=== PATIENT | female | born 1930 | race Caucasian/White ===

== ENCOUNTER → 2016-11-29 | Outpatient (CLI) | payer OTHER ==
[~2016-11-29] MED LIST: AMLODIPINE; ASPIRIN325 PO; BACTRIM DS TAB1 EACH PO; CALTRATE 600 +1 EACH PO; DARVOCET-N 1001 EACH PO; DOXYCYCLINE 10100 M1 PO; FISH OIL + D31 EACH PO; HYDROCODON-ACE1 EAC7 PO; LIPITOR; LIPITOR10 MG PO; MECLIZINE 25 MG25 M1 PO; MULTI-VITAMIN1 EAC5 PO; NAPROSYN500 MG PO; NORCO 5-325 TA1 EACH PO; NORVASC10 MG PO; PROMETHAZINE V480 M1 PO; VICODIN 5-5001 EACH PO
== END ==
LOC: RAD 07:52
DX: Z12.31 Encounter for screening mammogram for malignant neoplasm of breast (principal)

== ENCOUNTER 2017-05-02 10:22 | Observation (INO) | payer OTHER ==
[~2017-05-02] VITALS: Ht 152.4 cm; Wt 45.8 kg
--- NOTE | ~2017-05-02 | EKG ---
[place] [address] [facility] [place] [address] ELECTROCARDIOGRAM REPORT Name: PATEL COYLE Room #: 452-P ADM IN M.R.#: [id number] Admission: 05/02/17 Attend Phys: Vik Abernathy MD Discharge: Date of : 32 Report #: [id number] THIS REPORT FOR: //name// [facility] ED Test Date: 2017-05-02 Test Time: 11:26:37 Pat Name: PATEL COYLE Department: Room: [facility] Gender: F [employer] Operator: Mahad DE LEON : 1930 Requested By: Yoshi Vargas Order Number: [id number] MD: Vinny Montilla Measurements Intervals [place] Rate: 64 P: 40 [place]: 243 QRS: -6 QRSD: 99 T: 147 QT: 453 QTc: 468 Interpretive Statements Sinus rhythm Prolonged [place] interval Probable left atrial enlargement LVH with secondary repolarization abnormality Probable inferior infarct, old Compared to ECG 12/03/2015 09:06:55 Sinus bradycardia no longer present Electronically Signed On 05-03-2017 8:21:46 CDT by Vinny Montilla [email or web address] <ELECTRONICALLY SIGNED> By: Vinny Montilla MD, [facility] 05/03/17 0821 1126 1126 Vinny Montilla MD, [facility] /EPI
--- NOTE | ~2017-05-02 | 2DMMODE ---
[facility] [address] [place] [address] 2 D/M-MODE ECHOCARDIOGRAM Name: PATEL COYLE Room #: 452-P [facility] IN .R.#: [id number] Admission: 05/02/17 Attend Phys: Candida East Discharge: Date of : 31 Date of Service: 05/03/17 1119 Report #: [id number] THIS REPORT FOR: //name// APPROVED REPORT Study performed: 05/03/2017 10:35:16 EXAM: Comprehensive 2D, Doppler, and color-flow Echocardiogram Patient Location: Bedside Room #: [facility] Status: routine BSA: 1.40 HR: 64 bpm BP: 155/78 mmHg Rhythm: NSR Other Information Study Quality: Good Indications Syncope, elevated troponin. HX: HTN, HLP 2D Dimensions RVDd: 31.84 mm LVEF(%): 52.57 (>50%) IVSd: 13.70 (7-11mm) LVOT Diam: 21.80 (18-24mm) LVDd: 36.62 mm PWd: 12.78 (7-11mm) LVDs: 26.95 (25-40mm) Aortic Root: 39.49 mm Patel's LVEF: 52.57 % Volumes Left Atrial Volume (Systole) Single Plane 4CH: 34.49 mL Single Plane 2CH: 34.84 mL LA ESV Index: 28.00 mL/m2 Aortic Valve AoV Peak Shine.: 1.61 m/s AO Peak Gr.: 10.42 mmHg LVOT Max P.30 mmHg LVOT Max V: 1.04 m/s STACI Vmax: 2.40 cm2 Mitral Valve E/A Ratio: 0.5 MV Decel. Time: 301.52 ms [facility] [place] [address] 2 D/M-MODE ECHOCARDIOGRAM Name: PATEL COYLE Room #: 452-[facility] IN ..#: [id number] Admission: 05/02/17 Attend Phys: Candida East Discharge: Date of : 31 Date of Service: 05/03/17 1119 Report #: [id number] E Max Shine.: 0.44 m/s MV A Shine.: 0.89 m/s MV PHT: 87.44 ms IVRT: 124.57 ms Pulmonary Valve PV Peak Shine.: 0.97 m/s PV Peak Gr.: 3.78 mmHg Tricuspid Valve TR Peak Shine.: 2.53 m/s RAP Estimate: 5.00 mmHg TR Peak Gr.: 25.68 mmHg PA Pressure: 30.00 mmHg Left Ventricle The left ventricle is normal size. Regional wall motion is grossly normal. Moderate concentric left ventricular hypertrophy. Left ventricular systolic function is normal. LVEF is 55%. Mild diastolic dysfunction is present (impaired relaxation pattern). Right Ventricle The right ventricle is normal size. The right ventricular systolic function is normal. Atria The left atrium size is normal. No evidence of PFO/ASD with color flow doppler. The right atrium size is normal. Aortic Valve The Aortic valve is mildly sclerotic. Trace to mild aortic regurgitation. There is no aortic valvular stenosis. Mitral Valve Mitral valve leaflets are normal. Trace mitral regurgitation. Tricuspid Valve The tricuspid valve is normal in structure. There is trace to mild tricuspid regurgitation. The right atrial pressure is estimated at 5 mmHg. There is borderline mild pulmonary hypertension. Estimated PAP is 30mmHg. Pulmonic Valve The pulmonary valve is normal in structure. Trace pulmonic regurgitation. Great Vessels [facility] [address] [place] [address] 2 D/M-MODE ECHOCARDIOGRAM Name: PATEL COYLE [facility] IN ..#: [id number] Admission: 05/02/17 Attend Phys: Candida East Discharge: Date of : 31 Date of Service: 05/03/17 1119 Report #: [id number] Aortic root is mildly dilated at 3.9cm. The ascending aorta is normal in size. IVC is normal in size and collapses >50% with inspiration. Pericardium There is no pericardial effusion. <Conclusion> Left ventricular systolic function is normal. Moderate concentric left ventricular hypertrophy. Regional wall motion is grossly normal. LVEF 55%. Mild diastolic dysfunction is present (impaired relaxation pattern). The Aortic valve is mildly sclerotic. Trace to mild aortic regurgitation, no stenosis. Mitral valve leaflets are normal. Trace mitral regurgitation. Pulmonary artery pressure of 30mmHg There is no pericardial effusion. <ELECTRONICALLY SIGNED> By: Vinny Montilla MD, [facility] 05/03/17 1119 1119 1119 Vinny Montilla MD, FAC /INF
--- NOTE | ~2017-05-02 | HC ---
[facility] [place] [address] CONSULTATION Name: PATEL COYLE Room #: 452-P [facility] IN ..#: [id number] Admission: 05/02/17 Attend Phys: Vik Abernathy MD Discharge: 05/03/17 Date of : 31 Report #: [id number] THIS REPORT FOR: //name// CC: Filiberto Abernathy DATE OF SERVICE: 05/03/2017 HISTORY OF PRESENT ILLNESS: The patient is an 86-year-old female admitted with questionable syncope. She was noted to have hit her head on a car door approximately 2 days ago. She did not want to come right in at that time. She has some problems fussiness and not thinking right and she was thus brought in to [facility]. 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 There also was noted to be a chronic remote left frontal lobe infarct. Neurology is indicated the patient has a headache and dizziness after hitting her head on car door. She notes problems with her speech and trying to do her check book and with writing. We are seeing her in rehabilitation medicine consultation. PAST MEDICAL HISTORY: Includes hysterectomy, splenectomy, deviated septum, parathyroid surgery, hypertension, elevated cholesterol, non-ST elevation [place]. HABITS: No history of tobacco or alcohol abuse. MEDICATIONS: Please see the full medication listing. ALLERGIES: PENICILLIN. SOCIAL HISTORY: Lives in a house with her , one level. Her used a walker to get around. There is a daughter that he is currently staying with. They have 3 children in the area and another daughter in [place]. The patient was premorbidly ambulatory without gait aids. REVIEW OF SYSTEMS: She did not offer any current complaints of chest pain, shortness of breath or abdominal discomfort. Denied any focal extremity weakness, but does have concerns with her cognitive issues and her recent fall. PHYSICAL EXAMINATION: GENERAL: An 86-year-old white female in no obvious distress. The patient is alert. VITAL SIGNS: Last recorded temperature 97.8, pulse 71, respirations 18, blood pressure 136/69. HEENT: Appeared to be benign. EOMs appeared full. Facies were symmetric. NEUROLOGIC: She was able to follow basic 1 step commands without difficulty. Appears somewhat unsure of herself with further cognitive processing, however. EXTREMITIES: She has functional range of motion to both upper extremities. [facility] [address] [place] [address] CONSULTATION Name: PATEL COYLE Room #: 452-P [facility] IN ..#: [id number] Admission: 05/02/17 Attend Phys: Vik Abernathy MD Discharge: 05/03/17 Date of : 31 Report #: [id number] Chronic arthritic changes of her hands. Strength of the upper body is grade 4 to 4-/5. DTRs are trace to 1. Lower extremities, no focal calf swelling, functional range of motion with strength grade 4 to 4-/5. ASSESSMENT: An 86-year-old white female with the following problem list: 1. 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 2. Apparent head injury, hitting her head on a car door with some dizziness and headache. 3. Functional mobility, ADL and cognitive communication deficits to be further evaluated. 4. History of hypertension. 5. Elevated cholesterol. 6. History of non-ST elevation myocardial infarction. PLAN: Therapy evaluations are underway as well as the current neurologic workup. We will be glad to follow regarding her rehab therapy needs as she further medically stabilizes. By: 1130 0103 Valentin Delaney MD /
[2017-05-02 10:39] VITALS: BP 157/84
[2017-05-02 11:28] LABS: URINE BILIRUBIN NEGATIVE (Negative); URINE BLOOD TRACE (Negative); URINE COLOR YELLOW; URINE GLUCOSE-RANDOM* NEGATIVE (Negative); URINE KETONES NEGATIVE (Negative); URINE LEUKOCYTES-REFLEX NEGATIVE (Negative); URINE PROTEIN (DIPSTICK) NEGATIVE (Negative); URINE SPECIFIC GRAVITY <= 1.005 (1.003-1.035); URINE UROBILINOGEN 0.2 E.U./dl (0.2-1.0)
[2017-05-02 11:30] LABS: HEMATOCRIT 44.5 % (37.0-47.0); HEMOGLOBIN 15.2 gm/dL (12.0-15.0); MCH 30.9 pg (26.0-34.0); MCHC 34.3 g/dL (28.0-37.0); MCV 90.3 fL (80.0-100.0); RBC 4.93 mil/uL (4.20-5.00); RDW 13.6 % (10.5-14.5); WBC 11.7 thou/uL (4.0-11.0)
[2017-05-02 11:34] LABS: CALCIUM 9.9 mg/dL (8.5-10.1); CREATININE 1.1 mg/dL (0.6-1.0); POTASSIUM 3.7 mmol/L (3.5-5.1)
[2017-05-02 11:42] LABS: TROPONIN-I 0.59 ng/mL (<0.04-0.07)
[2017-05-02] MEDS ORDERED: ALEVE220 MG PO (11:53)
[2017-05-02] MEDS ORDERED: MAGNESIUM250 M1 PO (11:53)
[2017-05-02 16:04] VITALS: BP 166/68
[2017-05-02 16:59] LABS: URINE BILIRUBIN NEGATIVE (Negative); URINE BLOOD TRACE (Negative); URINE COLOR YELLOW; URINE GLUCOSE-RANDOM* NEGATIVE (Negative); URINE KETONES TRACE (Negative); URINE NITRITE NEGATIVE (Negative); URINE PROTEIN (DIPSTICK) NEGATIVE (Negative); URINE UROBILINOGEN 0.2 E.U./dl (0.2-1.0)
[2017-05-02 19:50] VITALS: BP 144/73
[2017-05-03] VITALS (9 sets, daily range): BP systolic 107–165; BP diastolic 65–79
[2017-05-03 04:56] LABS: HEMATOCRIT 42.2 % (37.0-47.0); HEMOGLOBIN 14.2 gm/dL (12.0-15.0); MCH 30.6 pg (26.0-34.0); MCHC 33.6 g/dL (28.0-37.0); RBC 4.63 mil/uL (4.20-5.00); RDW 13.6 % (10.5-14.5); WBC 8.8 thou/uL (4.0-11.0)
[2017-05-03 05:09] LABS: ALBUMIN 3.4 g/dL (3.4-5.0); ALKALINE PHOSPHATASE 51 U/L (46-116); ANION GAP 7 mmol/L (7-16); BUN 17 mg/dL (7-18); CHLORIDE 102 mmol/L (98-107); CHOLESTEROL 131 mg/dL (<200); CO2 28 mmol/L (21-32); CREATININE 0.9 mg/dL (0.6-1.0); GLUCOSE 83 mg/dL (74-106); HDL CHOLESTEROL 69 mg/dL (>40); LDL CHOLESTEROL 52 mg/dL (<100); POTASSIUM 3.5 mmol/L (3.5-5.1); SGOT 25 U/L (15-37); SGPT 20 U/L (30-65); SODIUM 137 mmol/L (136-145); TC:HDL 1.9 Ratio (Not establshd); TOTAL BILIRUBIN 0.7 mg/dL (<0.1-1.0); TOTAL PROTEIN 6.7 g/dL (6.4-8.2); TRIGLYCERIDE 52 mg/dL (<150); VLDL 10 mg/dL (<40)
[2017-05-03 05:25] LABS: SERUM ASSESSMENT Clear
[2017-05-03] MEDS ORDERED: ASPIR 8181 MG PO (17:59)
== END 2017-05-03 18:36 | disposition home health service (06) ==
LOC: ER 10:22 → 4W 14:46 → ENTRNSPT 05-03 18:17 → 4W 05-03 18:36
PROVIDERS: Emergency Medicine; Family Medicine
DX: I63.9 Cerebral infarction, unspecified (principal); I10 Essential (primary) hypertension; R79.89 Other specified abnormal findings of blood chemistry; E78.00 Pure hypercholesterolemia, unspecified

== ENCOUNTER → 2017-12-21 | Outpatient (CLI) | payer OTHER ==
[~2017-12-21] MED LIST changes: +ALEVE220 MG PO; +ASPIR 8181 MG PO; +MAGNESIUM250 M1 PO
== END ==
LOC: RAD 00:59
DX: Z12.31 Encounter for screening mammogram for malignant neoplasm of breast (principal)

== ENCOUNTER 2018-06-24 17:41 | Inpatient (IN) | payer OTHER ==
[~2018-06-24] VITALS: Ht 152.4 cm; Wt 50.0 kg
--- NOTE | ~2018-06-24 | EKG ---
[address] [address] ELECTROCARDIOGRAM REPORT Name: PATEL COYLE Room #: 352-P ADM IN M.R.#: [id number] Admission: 06/24/18 Attend Phys: Abrahan Muhammad MD Discharge: Date of : 31 Report #: [id number] THIS REPORT FOR: //name// [facility] ED Test Date: 2018-06-24 Test Time: 19:23:53 Pat Name: PATEL COYLE Department: Room: [facility] Gender: F Clay Modeler: SURENDRA : 1930 Requested By: Dara Ceron Order Number: [id number] MD: Vinny Montilla Measurements Intervals [place] Rate: 85 P: 16 MS: 212 QRS: -28 QRSD: 105 T: 145 QT: 417 QTc: 496 Interpretive Statements Sinus rhythm Borderline prolonged [place] interval Probable left atrial enlargement LVH with secondary repolarization abnormality Probable inferior infarct, age indeterminate Baseline wander in lead(s) V1 Compared to ECG 05/02/2017 11:26:37 No significant changes Electronically Signed On 06-26-2018 9:06:12 CDT by Vinny Montilla [email or web address] <ELECTRONICALLY SIGNED> By: Vinny Montilla MD, [facility] 06/26/18 0906 22 22 Vinny Montilla MD, [facility] /EPI
--- NOTE | ~2018-06-24 | 2DMMODE ---
[facility] [address] [place] [address] 2 D/M-MODE ECHOCARDIOGRAM Name: PATEL COYLE Room #: 352-P [facility] IN ..#: [id number] Admission: 06/24/18 Attend Phys: Abrahan Muhammad MD Discharge: Date of : 31 Date of Service: 06/26/18 1018 Report #: [id number] THIS REPORT FOR: //name// APPROVED REPORT Study performed: 06/26/2018 09:18:55 EXAM: Comprehensive 2D, Doppler, and color-flow Echocardiogram Patient Location: Echo lab Room #: [facility] Status: routine BSA: 1.43 HR: 76 bpm BP: 181/89 mmHg Rhythm: NSR Other Information Study Quality: Adequate Indications CVA. Hx: HTN, HLP Echo Enhancing Agent Indication: Rule out Shunt Agent(s) / Amount(s) Used: Agitated Saline 6 cc 2D Dimensions RVDd: 36.87 mm IVSd: 13.00 (7-11mm) LVOT Diam: 20.69 (18-24mm) LVDd: 40.00 mm PWd: 13.00 (7-11mm) Ascending Ao: 36.88 (22-36mm) LVDs: 27.52 (25-40mm) Aortic Root: 40.39 mm Volumes Left Atrial Volume (Systole) Single Plane 4CH: 24.86 mL Single Plane 2CH: 33.74 mL LA ESV Index: 22.00 mL/m2 Aortic Valve AoV Peak Shine.: 1.53 m/s AO Peak Gr.: 9.31 mmHg LVOT Max P.42 mmHg LVOT Max V: 0.92 m/s STACI Vmax: 2.04 cm2 [facility] [place] [place] [address] 2 D/M-MODE ECHOCARDIOGRAM Name: PATEL COYLE Room #: 352-P [facility] IN [facility]#: [id number] Admission: 06/24/18 Attend Phys: Abrahan Muhammad MD Discharge: Date of : 31 Date of Service: 06/26/18 1018 Report #: [id number] Mitral Valve E/A Ratio: 0.5 MV Decel. Time: 364.01 ms MV E Max Shine.: 0.42 m/s MV A Shine.: 0.85 m/s MV PHT: 105.56 ms IVRT: 110.73 ms Pulmonary Valve PV Peak Shine.: 1.05 m/s PV Peak Gr.: 4.42 mmHg Tricuspid Valve TR Peak Shine.: 2.50 m/s RAP Estimate: 5.00 mmHg TR Peak Gr.: 25.03 mmHg PA Pressure: 30.00 mmHg Left Ventricle The left ventricle is normal size. There is normal LV segmental wall motion. Mild-moderate concentric left ventricular hypertrophy. The overall left ventricular systolic function appears normal. LVEF is 55%. Mild diastolic dysfunction is present (impaired relaxation pattern). Right Ventricle The right ventricle is normal size. The right ventricular systolic function is normal. Atria The left atrium size is normal. No shunting noted with contrast bubble injection. The right atrium size is normal. Aortic Valve The aortic valve is mildly sclerotic. Mild aortic regurgitation. There is no aortic valvular stenosis. Mitral Valve The mitral valve is normal in structure. Trace to mild mitral regurgitation. Tricuspid Valve The tricuspid valve is normal in structure. Trace to mild tricuspid regurgitation. Estimated PAP is 30-35mmHg. Pulmonic Valve The pulmonary valve is normal in structure. Trace pulmonic regurgitation. [facility] [address] [place] [address] 2 D/M-MODE ECHOCARDIOGRAM Name: PATEL COYLE Room #: 352-P [facility] IN ..#: [id number] Admission: 06/24/18 Attend Phys: Abrahan Muhammad MD Discharge: Date of : 31 Date of Service: 06/26/18 1018 Report #: [id number] Great Vessels Aortic root is mildly dilated. The ascending aorta is normal in size. IVC is normal in size and collapses >50% with inspiration. Pericardium There is no pericardial effusion. <Conclusion> The overall left ventricular systolic function appears normal. Mild-moderate concentric left ventricular hypertrophy. There is normal LV segmental wall motion. LVEF is 55%. Mild diastolic dysfunction No shunting noted with contrast bubble injection. The aortic valve is mildly sclerotic. Mild aortic regurgitation or stenosis The mitral valve is normal in structure. Trace to mild mitral regurgitation. Trace to mild tricuspid regurgitation. Estimated pulmonary artery pressure of 30-35mmHg. There is no pericardial effusion. <ELECTRONICALLY SIGNED> By: Vinny Montilla MD, [facility] 06/26/18 1018 1018 1018 Vinny Montilla MD, [facility] /INF
--- NOTE | ~2018-06-24 | HC ---
[facility] [place] [address] [place] [address] CONSULTATION Name: PATEL COYLE Room #: 352-P ADM IN M.R.#: [id number] Admission: 06/24/18 Attend Phys: Abrahan Muhammad MD Discharge: Date of : 31 Report #: [id number] THIS REPORT FOR: //name// CC: Filiberto Muhammad HISTORY OF PRESENT ILLNESS: The patient is an 87-year-old female. She is well known to me. I have followed her for a number of years for some mild valvular insufficiency, hypertension, hypercholesterolemia. Apparently, was in [place] yesterday, some shaky, jitteriness, not felt well, possibly some right hand involvement, refused to go to the paramedics and daughter subsequently brought her to the [place]. She was admitted, seen by Neurology, hospitalist. An MRI most recently reveals possibly a small area of a recent acute or subacute infarct on the left side, consistent with an area of perfusion abnormality on the CT. Avenue to be small vessel disease. The transthoracic echo looked to be normal. Bubble study was negative. She has been doing fairly well and still somehow living independently, still grieving the loss of her . She does have family members involved in her care. I saw her a couple of months ago in the office, she was on amlodipine, baby aspirin, atorvastatin 10, calcium, magnesium, multivitamin. PAST MEDICAL HISTORY: Positive for hypertension, hypercholesterolemia, some idiopathic thrombocytopenia, hysterectomy, septoplasty, splenectomy and DJD. FAMILY HISTORY: Father from an infarct early in his years, she stated. SOCIAL HISTORY: She is . She has children. Never tobacco or alcohol user. A cup of coffee a day. ALLERGIES: HYDROCODONE AND ACETAMINOPHEN, PENICILLIN. DIAGNOSTIC DATA: She has had multiple CAT scans and MRIs that show consistent with this limited infarct. CT scan showed old chronic left and right frontal, left frontal and right cerebellar infarct, but then the MRI was suggestive of a process going on as stated above. LABORATORY DATA: Sodium 142, BUN 15, creatinine 0.9, glucose 129. Lipids are favorable. Troponin 0.72. This is not diagnostic. She runs chronically elevated troponins, generally in the 2-3 range, so this has improved. H and H are 13 and 40. No white count. PHYSICAL EXAMINATION: GENERAL: She certainly has some memory, but she is pleasant. She does recognize me. VITAL SIGNS: Pulse is 80s in sinus rhythm, blood pressure 140/60. HEENT: Eyes reveal xanthelasmas, arcus senilis is noted. Pharynx is clear. NECK: Shows preserved upstrokes without JVD or bruits. [address] [address] CONSULTATION Name: PATEL COYLE Room #: 352-P [facility] IN M.R.#: [id number] Admission: 06/24/18 Attend Phys: Abrahan Muhammad MD Discharge: Date of : 31 Report #: [id number] LUNGS: Clear. CARDIAC: Regular rate and rhythm, S1, S2. Faint holosystolic murmur is noted. ABDOMEN: Soft. No HSM or abdominal bruit. EXTREMITIES: Reveal trace edema. Distal pulses were intact. NEUROLOGIC: Nonfocal. Seemed to have reasonable strength involving the right upper extremity, although did not follow commands entirely. SKIN: Warm and dry without xanthoma. There are some varicosities noted. No skin breakdown. MUSCULOSKELETAL: Generalized arthritic changes. ASSESSMENT: 1. Appears to be small vessel infarct to the left hemisphere with evidence of old prior events. Minimal residual. 2. Hypertension. 3. Hypercholesterolemia. 4. Some early dementia with memory deficit. 5. Degenerative joint disease. RECOMMENDATIONS AND PLAN: I agree with restarting the aspirin, would consider possibly an additional clopidogrel with the reduced dose aspirin. I do not certainly think that a MELIA would be necessary in this setting here, would definitely favor a 2-4 week outpatient monitor looking for atrial fibrillation and addition of Plavix perhaps as this did occur on a baby aspirin. She seems to have minimal to little residual here. The transthoracic echo was actually an excellent study with bubble negative. The only thing we could not evaluate really well would be the appendage, but I think the yield would be small in this elderly somewhat frail female. We will proceed and follow with you. Discuss with Neurology and primary in the a.m. about the addition of a second antiplatelet agent and we will place 2-week monitor prior to discharge. I suspect that will be relatively soon. Thank you for allowing me to assist in care of this patient. By: 2054 1225 Izaiah Gonzalez MD, FACC /nt
--- NOTE | ~2018-06-24 | EKG ---
[place] [address] [facility] [place] [address] ELECTROCARDIOGRAM REPORT Name: PATEL COYLE Room #: 352- ADM IN M.R.#: [id number] Admission: 06/24/18 Attend Phys: Abrahan Muhammad MD Discharge: Date of : 31 Report #: [id number] THIS REPORT FOR: //name// [facility] Test Date: 2018-06-27 Test Time: 07:48:56 Pat Name: PATEL COYLE Department: Room: [facility] Gender: F Builder Operator: ANTONIETA : 1930 Requested By: Izaiah Gonzalez Order Number: [id number] MD: Vinny Montilla Measurements Intervals [place] Rate: 70 P: 76 [place]: 226 QRS: 31 QRSD: 100 T: 203 QT: 447 QTc: 483 Interpretive Statements Sinus rhythm Prolonged [place] interval Probable left atrial enlargement LVH with secondary repolarization abnormality Baseline wander in lead(s) V6 Compared to ECG 06/24/2018 19:23:[address] segment abnormality is slightly more pronounced Electronically Signed On 06-27-2018 8:03:54 CDT by Vinny Montilla [email or web address] <ELECTRONICALLY SIGNED> By: Vinny Montilla MD, [facility] 06/27/18 0803 0748 0748 Vinny Montilla MD, [facility] /EPI
--- NOTE | ~2018-06-24 | HC ---
[facility] [place] [address] CONSULTATION Name: PATEL COYLE Room #: 352-P [facility] IN ..#: [id number] Admission: 06/24/18 Attend Phys: Abrahan Muhammad MD Discharge: Date of : 31 Report #: [id number] THIS REPORT FOR: //name// CC: Filiberto Muhammad DATE OF SERVICE: 06/26/2018 HISTORY OF PRESENT ILLNESS: The patient is an 87-year-old white female with 2 prior CVAs without significant residual. One was noted to be an occipital CVA, who was admitted with mental status changes, noted to have right hand numbness and decreased function. Something was "not quite right." Upon admission, she was noted to have a left parietal CVA on CT scan and this was confirmed by MRI. Neurology is involved and indicate that the patient would need to be evaluated regarding possible atrial fibrillation due to the multiple strokes in multiple vascular distribution with intracranial vasculature being clean. The patient has had a functional decline from her premorbid level and we are seeing her in rehabilitation medicine consultation. She was noted to have right-sided weakness with some confusion. PAST MEDICAL HISTORY: Includes prior right superior cerebellar ischemic infarct apparent head injury back in 2017, history of hypertension, elevated cholesterol, non-ST elevation ID. PAST SURGICAL HISTORY: Includes hysterectomy, splenectomy, deviated septum, parathyroid surgery. MEDICATIONS: Please see the full medication listing. This includes vitamins, herbals, and supplements. ALLERGIES: INCLUDE PENICILLIN. SOCIAL HISTORY: She lives in a house alone, 4 steps in, recent approximately 4 months ago. She does have supportive children and there is a daughter that is currently involved and there is a sister that spent the night last night. REVIEW OF SYSTEMS: No current complaints of chest pain, shortness of breath, abdominal discomfort. Notes some numbness of the right side, but feels it is improving. No focal extremity pain complaints. PHYSICAL EXAMINATION: She is a pleasant small statured, thin 87-year-old white female, in no obvious distress. VITAL SIGNS: Last recorded temperature 98.3, pulse 85, respirations 18, blood pressure 181/89. Alert was incorrect regarding year. She does follow basic 1 step commands, but she is unsure of herself and will refer to her daughter with [facility] [address] [place] [address] CONSULTATION Name: PATEL COYLE Room #: 352-P [facility] IN .R.#: [id number] Admission: 06/24/18 Attend Phys: Abrahan Muhammad MD Discharge: Date of : 31 Report #: [id number] further questioning. NEUROLOGIC: EOMs appeared to be full. I could not detect any obvious visual field deficit. EXTREMITIES: has some weakness on the right side, a grade 4-/5 upper and lower extremity. Left side is more of a grade 4/5. DTRs are 1. Tone appeared to be intact. Functionally, she has been seen by physical therapy and is at a min assist level with the walker, short distances. She is showing impaired right to left discrimination, possible right visual field deficits, inconsistent step length and when fatigued will list toward the wall or point of stability. She does have decreased balance and safety awareness and there is some right-sided neglect. ASSESSMENT: An 87-year-old white female with the following problems: 1. Left parietal cerebrovascular accident confirmed both CT and MRI. 2. Right-sided hemiparesis. 3. Right-sided neglect. 4. Decreased balance with fall risk. 5. Some decreased coordination. 6. Safety awareness. 7. Prior history of a cerebrovascular accident, right superior cerebellar. 8. Premorbid status was independent, living alone and without utilizing gait aids. 9. Hypertension. 10. Hyperlipidemia. 11. Prior history of non-ST elevation myocardial infarction. PLAN: Therapy evaluations are continuing. OT and speech therapy to be involved. Discussion with the patient's daughter who is very supportive. They would very much like for the patient to have a short acute in-hospital inpatient rehabilitation stay once her neurologic and medical workup is completed. The family appears very supportive and with the patient's deficits as delineated above, I think that this will be a good plan. The further therapies are to evaluate and we will be in contact with insurance regarding precertification. Discussion of the above was held with the patient's daughter. Thank you for asking us to assist in this patient's care. By: [id number] Valentin Delaney MD /nt
--- NOTE | ~2018-06-24 | HC ---
[facility] [place] [address] CONSULTATION Name: PATEL COYLE Room #: 352-P [facility] IN M.R.#: [id number] Admission: 06/24/18 Attend Phys: Rakesh Kathleen MD Discharge: Date of : 31 Report #: [id number] THIS REPORT FOR: //name// CC: Rakesh Pham DATE OF SERVICE: 06/24/2018 HISTORY OF PRESENT ILLNESS: This is an 87-year-old female patient who was evaluated by me for stroke. The history is from the Emergency Room physician, the patient's daughter and the patient's son. This patient was in the chair around 4:30. She did not notice anything wrong but other people noticed that she was not right. They wanted her to call ambulance, but she would not do it. They called the patient's daughter who went back to see her and she has to drive a lot to see her, but she was able to persuade this patient to come to the Emergency Room. With that history, it was presumed that the time of onset was 4:30 p.m., but it looks like that is the time the symptoms were noticed. The patient did not notice it, other people noticed it and it is possible the symptoms were going on longer than that. She was brought to Emergency Room and initial workup was done by Emergency Room physician. She did a CT scan of the head, CT angio and CT perfusion. It does not show any major occlusion of the vessels but that shows finding consistent with a large penumbra in the left cerebral hemisphere, which will correlate with the patient's symptoms of speech difficulty and right-sided weakness. I got the first call on this patient around 7:15 p.m. I talked to the Emergency Room doctor and as their notes indicated, recommended TPA if there is no contraindication. They discussed that with the patient and the family and they declined and refused TPA and the TPA was not given. I came and evaluated the patient and took the history and it looks like the symptoms onset may have been earlier than 4:30 p.m. She does have right-sided weakness and she is very confused. She has some residual weakness in the right side from the prior stroke but that is worse now. REVIEW OF SYSTEMS: Partly taken from the record and partly from the patient. She was in this hospital in April of 2017. She saw Dr. Martines that time. 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 She went home, even that time even after concerns of Dr. Martines. She does not have any history of heart failure. It looks like she has been seen by Dr. Gonzalez in the past. She was functional before. She had cardiac workup before. She also has a flexion tendon rupture in the past. At one time, she was admitted with dizziness. At one time, she was admitted with closed head injury. She does have a history of hypertension and hysterectomy. She had a history of splenectomy, but her platelets are normal now. She has already received aspirin at home. This was her relevant 14-point review of system. [address] [address] CONSULTATION Name: PATEL COYLE Room #: 352-P ADM IN ..#: [id number] Admission: 06/24/18 Attend Phys: Rakesh Kathleen MD Discharge: Date of : 31 Report #: [id number] PAST MEDICAL HISTORY: Positive for what looks like at least 2 strokes. FAMILY HISTORY: Negative for early age stroke. SOCIAL HISTORY: She has a pretty supportive family and I talked to the daughter and the son. PHYSICAL EXAMINATION: NEUROLOGICAL: Her examination was carried out multiple times. She is alert. She is responsive. She does not know what month it is and that is not normal for her. She can still say words. She knew what hospital she was in but when asked who the president is, she said she is [place]. Cranial nerve examination 2 through 12 was somewhat incomplete because I cannot do a very good visual field on her because she is not cooperative enough and there may be slight facial palsy. She is definitely weak in the right upper and right lower extremity. How much is old and how much is new, I don't know. She moves the left side well. HEART: She does have a murmur in the heart but she has no history of atrial fibrillation. SKIN: Does not have much edema, cyanosis or jaundice. CARDIORESPIRATORY: Cardiac examinations clinically appear unremarkable. No respiratory difficulty was noticed. VITAL SIGNS: Blood pressure is running about 165, systolic; respirations 17; pulse is 81 and temperature is 97.5. GENERAL: She is thinly built individual. HEENT: Her hearing and vision looks adequate. NECK: She has no thyroid mass. RADIOLOGICAL DATA: Her CT was reviewed and CT angiogram was reviewed with the patient and the family. IMPRESSION: 1. Left hemispheric cerebrovascular accident. 2. Multiple other cerebrovascular accident in different vascular distribution with no clot demonstrated in any of the major vessels. That is an indication to do extensive workup to look for any atrial fibrillation as is secondary stroke prophylaxis later on. RECOMMENDATIONS: 1. The patient and the family refused TPA as I understand. I will suggest keeping the blood pressure high. I talked to the Emergency Room physician and asked them to give a fluid bolus to hydrate her well and even keep her blood pressure a little bit more higher. We should not treat the patient's blood pressure. 2. Monitor the patient closely but I do not think much can be done because there is no much can be done at this stage because there is nothing to retrieve [facility] [address] [place] [address] CONSULTATION Name: PATEL COYLE Room #: 352-P ADM IN M.R.#: [id number] Admission: 06/24/18 Attend Phys: Rakesh Kathleen MD Discharge: Date of : 31 Report #: [id number] the clot. 3. The patient was very reluctant to come to the hospital. She wanted to go home. She is competent to make her decision but after talking to her for a while, she is agreeable to stay in the hospital. She is a very pleasant person, but she just does not like the hospitals. Similarly, family also persuaded the patient and she wants to go home as soon as possible. I am not sure that will be possible, but we will try to encourage her every day to stay in the hospital. 4. She will need PT, OT, rehab and DVT prophylaxis. 5. She already received aspirin. 6. Depending upon how she does from the stroke and whether she become worse or not, this patient needs extensive workup to look for atrial fibrillation because she has stroke in multiple distributions without any major vessel arterial thrombosis. That is an indication to look for any cardio embolization. If some atrial fibrillation is noticed during the monitoring of telemetry, then she does not need workup to look for atrial fibrillation. Otherwise, she will need a followup with her dental technician metal, Dr. Gonzalez for 30 days event monitor and even implantable monitor to look for atrial fibrillation. That is assuming that she comes out okay from this stroke. However, that is not guaranteed because the patient can deteriorate from the present condition. All of it was discussed with the family in detail and I spent considerable amount of time with them. I discussed the situation again with Emergency Room doctor and she will give her some fluid bolus and keep the blood pressure high. this addendum is being added at the time of signing the dictation being signed. Patient was seen multiple times and she continued to be stable. Patient was discussed with emergency room physician multiple times. More than the minutes of time was spent taking care of this patient today and majority of that time was spent counseling the patient and the family and coordinating her care <ELECTRONICALLY SIGNED> By: Robert Tucker MD 06/25/18 1523 0505 Robert Tucker MD /nt
--- NOTE | ~2018-06-24 | EKG ---
[address] [address] ELECTROCARDIOGRAM REPORT Name: PATEL COYLE Room #: 352- ADM IN M.R.#: [id number] Admission: 06/24/18 Attend Phys: Abrahan Muhammad MD Discharge: Date of : 31 Report #: [id number] THIS REPORT FOR: //name// [facility] Test Date: 2018-06-28 Test Time: 08:31:28 Pat Name: PATEL COYLE Department: Room: [facility] Gender: F Instructor Industrial Design: ANTONIETA : 1930 Requested By: Abrahan Muhammad Order Number: [id number] MD: Vinny Montilla Measurements Intervals [place]f Rate: 139 P: AL: QRS: -30 QRSD: 95 T: 109 QT: 328 QTc: 499 Interpretive Statements Atrial fibrillation LVH with secondary repolarization abnormality Borderline prolonged QT interval Compared to ECG 06/27/2018 07:48:56 Atrial fibrillation has replaced sinus rhythm Electronically Signed On 06-28-2018 8:53:16 CDT by Vinny Montilla [email or web address] <ELECTRONICALLY SIGNED> By: Vinny Montilla MD, [facility] 06/28/18 0853 0 0 Vinny Montilla MD, FAC /EPI
[2018-06-24 17:49] VITALS: BP 174/68
[2018-06-24 18:17] LABS: POC CA IONIZED 4.9 mg/dL (4.5-5.3); POC HEMOGLOBIN 15.6 g/dL (12.0-15.0); POC POTASSIUM 3.8 mmol/L (3.5-5.1)
[2018-06-24 18:20] LABS: ABSOLUTE NEUTROPHILS 3.7 thou/uL (1.4-8.2); BASOPHILS 0.8 % (0.0-2.0); EOSINOPHILS 1.6 % (0.0-3.0); HEMATOCRIT 44.7 % (37.0-47.0); LYMPHOCYTES 34.5 % (24.0-44.0); MCH 31.2 pg (26.0-34.0); MCHC 33.7 g/dL (28.0-37.0); MCV 92.8 fL (80.0-100.0); MONOCYTES 11.8 % (1.0-8.0); PLATELET COUNT 207 thou/uL (150-400); POLYS 51.3 % (36.0-66.0); RBC 4.81 mil/uL (4.20-5.00); RDW 13.2 % (10.5-14.5); WBC 7.3 thou/uL (4.0-11.0)
[2018-06-24 18:36] LABS: APTT 25.3 Seconds (24.5-32.8)
[2018-06-24 18:56] LABS: URINE BILIRUBIN NEGATIVE (Negative); URINE BLOOD NEGATIVE (Negative); URINE CLARITY CLEAR; URINE COLOR YELLOW; URINE GLUCOSE-RANDOM* NEGATIVE (Negative); URINE KETONES NEGATIVE (Negative); URINE LEUKOCYTES 1+ (Negative); URINE NITRITE NEGATIVE (Negative); URINE PROTEIN (DIPSTICK) NEGATIVE (Negative); URINE SPECIFIC GRAVITY <= 1.005 (1.005-1.035); URINE UROBILINOGEN 0.2 E.U./dl (0.2-1.0)
[2018-06-24 19:05] LABS: SQUAMOUS 4-10 Moderate /LPF (0-3)
[2018-06-24 19:06] LABS: BACTERIA None Seen /HPF (None Seen); CASTS None Seen /LPF (None Seen); CRYSTALS None Seen /LPF (None Seen); URINE RBC 0-2 Rare /HPF (0-2); URINE WBC 6-15 Few /HPF (0-5)
[2018-06-24 20:10] VITALS: BP 171/75
[2018-06-24 20:13] VITALS: BP 165/70
[2018-06-24 21:00] VITALS: BP 157/75
[2018-06-24 21:57] VITALS: BP 139/58
[2018-06-25] VITALS (8 sets, daily range): BP systolic 121–174; BP diastolic 59–80
[2018-06-25 05:10] LABS: HEMATOCRIT 42.1 % (37.0-47.0); HEMOGLOBIN 14.1 gm/dL (12.0-15.0); MCH 31.3 pg (26.0-34.0); MCHC 33.5 g/dL (28.0-37.0); MCV 93.4 fL (80.0-100.0); RBC 4.51 mil/uL (4.20-5.00); RDW 13.3 % (10.5-14.5); WBC 7.3 thou/uL (4.0-11.0)
[2018-06-25 05:20] LABS: ANION GAP 8 mmol/L (7-16); BUN 15 mg/dL (7-18); CALCIUM 8.8 mg/dL (8.5-10.1); CHLORIDE 106 mmol/L (98-107); CHOLESTEROL 140 mg/dL (<200); CO2 29 mmol/L (21-32); CREATININE 0.9 mg/dL (0.6-1.0); GLUCOSE 80 mg/dL (74-106); HDL CHOLESTEROL 75 mg/dL (>40); LDL CHOLESTEROL 55 mg/dL (<100); POTASSIUM 3.3 mmol/L (3.5-5.1); SODIUM 143 mmol/L (136-145); TC:HDL 1.9 Ratio (Not establshd); TRIGLYCERIDE 51 mg/dL (<150); VLDL 10 mg/dL (<40)
[2018-06-25 05:26] LABS: SERUM ASSESSMENT Clear
[2018-06-26] VITALS (10 sets, daily range): BP systolic 120–181; BP diastolic 52–89
[2018-06-26 04:16] LABS: HEMATOCRIT 40.7 % (37.0-47.0); HEMOGLOBIN 13.7 gm/dL (12.0-15.0); MCH 31.4 pg (26.0-34.0); MCHC 33.7 g/dL (28.0-37.0); MCV 93.2 fL (80.0-100.0); RBC 4.37 mil/uL (4.20-5.00); RDW 13.3 % (10.5-14.5)
[2018-06-26 04:30] LABS: CALCIUM 7.8 mg/dL (8.5-10.1); CREATININE 0.9 mg/dL (0.6-1.0); POTASSIUM 3.6 mmol/L (3.5-5.1)
[2018-06-26 23:09] LABS: GLYCOHEMOGLOBIN (HGB A1C) 5.7 % (4.8-5.6)
[2018-06-27] VITALS (7 sets, daily range): BP systolic 144–164; BP diastolic 57–81
[2018-06-28] VITALS (17 sets, daily range): BP systolic 113–171; BP diastolic 47–93
[2018-06-28 09:00] LABS: HEMATOCRIT 46.7 % (37.0-47.0); HEMOGLOBIN 15.8 gm/dL (12.0-15.0); MCH 31.3 pg (26.0-34.0); MCHC 33.9 g/dL (28.0-37.0); MCV 92.5 fL (80.0-100.0); RBC 5.05 mil/uL (4.20-5.00); RDW 13.2 % (10.5-14.5); WBC 9.2 thou/uL (4.0-11.0)
[2018-06-28 09:07] LABS: CREATININE 1.1 mg/dL (0.6-1.0); POTASSIUM 3.7 mmol/L (3.5-5.1)
[2018-06-28 09:09] LABS: CALCIUM 9.9 mg/dL (8.5-10.1)
[2018-06-28 09:21] LABS: ALBUMIN 3.6 g/dL (3.4-5.0); MAGNESIUM 2.3 mg/dL (1.8-2.4); TOTAL BILIRUBIN 0.6 mg/dL (<0.1-1.0); TOTAL PROTEIN 7.4 g/dL (6.4-8.2)
[2018-06-28 09:23] LABS: TROPONIN-I 0.88 ng/mL (<0.06)
[2018-06-29 05:40] VITALS: BP 158/78
[2018-06-29 07:20] VITALS: BP 147/76
[2018-06-29 08:00] VITALS: BP 147/76
[2018-06-29 11:24] VITALS: BP 132/61
[2018-06-29] MEDS ORDERED: ACETAMINOPHEN650 MG RECTAL (11:40)
[2018-06-29] MEDS ORDERED: ELIQUIS2.5 MG PO (11:40)
[2018-06-29] MEDS ORDERED: DILTIAZEM 24HR180 M1 PO (11:40)
[2018-06-29] MEDS ORDERED: COLACE100 MG PO (11:40)
[2018-06-29] MEDS ORDERED: FAMOTIDINE20 MG/2 M2 IV (11:40)
[2018-06-29 12:00] VITALS: BP 147/76
[2018-06-29 14:16] VITALS: BP 150/64
== END 2018-06-30 14:54 | DRG 64 ==
LOC: ER 17:41 → 3W 20:19 → EROBS 20:19 → 3W 21:58 → EROBS 23:17 → 3W 06-29 14:09 → EROBS 06-30 14:54
PROVIDERS: Hospitalist; Internal Medicine; Nurse Practitioner Family; Student in an Organized Health Care Education/Training Program
DX: I63.9 Cerebral infarction, unspecified (principal); G93.41 Metabolic encephalopathy; G81.94 Hemiplegia, unspecified affecting left nondominant side; G81.91 Hemiplegia, unspecified affecting right dominant side; N39.0 Urinary tract infection, site not specified; I10 Essential (primary) hypertension; E78.5 Hyperlipidemia, unspecified; E78.00 Pure hypercholesterolemia, unspecified; M19.90 Unspecified osteoarthritis, unspecified site; F03.90 Unspecified dementia, unspecified severity, without behavioral disturbance, psychotic disturbance, mood disturbance, and anxiety; E03.9 Hypothyroidism, unspecified; Z60.2 Problems related to living alone; M62.84 Sarcopenia; E87.6 Hypokalemia; K59.00 Constipation, unspecified; M81.0 Age-related osteoporosis without current pathological fracture; I69.911 Memory deficit following unspecified cerebrovascular disease; Z90.710 Acquired absence of both cervix and uterus; Z88.8 Allergy status to other drugs, medicaments and biological substances; Z87.828 Personal history of other (healed) physical injury and trauma; Z90.81 Acquired absence of spleen; Z88.0 Allergy status to penicillin; I25.2 Old myocardial infarction; Z88.6 Allergy status to analgesic agent; Z79.82 Long term (current) use of aspirin; Z79.899 Other long term (current) drug therapy; I48.91 Unspecified atrial fibrillation
CPT/HCPCS: 10879

== ENCOUNTER → 2018-11-01 | Outpatient (CLI) | payer OTHER ==
[~2018-11-01] MED LIST changes: +ACETAMINOPHEN650 MG RECTAL; +CALCIUM 600 +1 EAC1 PO; +COLACE100 MG PO; +DILTIAZEM 24HR180 M1 PO; +ELIQUIS2.5 MG PO; +FAMOTIDINE20 MG/2 M2 IV; +FELODIPINE 5 MG5 M1 PO; +FLONASE 0.05%50 MCG NASAL
== END ==
LOC: CAT 06:51 → RAD 06:51 → CAT 11:07
DX: N21.0 Calculus in bladder (principal); N28.1 Cyst of kidney, acquired; M11.261 Other chondrocalcinosis, right knee; I70.0 Atherosclerosis of aorta; R91.1 Solitary pulmonary nodule; M47.815 Spondylosis without myelopathy or radiculopathy, thoracolumbar region; M43.17 Spondylolisthesis, lumbosacral region; K42.9 Umbilical hernia without obstruction or gangrene; Z90.710 Acquired absence of both cervix and uterus

== ENCOUNTER → 2019-01-05 | Outpatient (CLI) | payer OTHER | LOC: RAD 08:10 | DX: Z12.31 Encounter for screening mammogram for malignant neoplasm of breast (principal) ==

== ENCOUNTER 2019-05-01 19:59 | Inpatient (IN) | payer OTHER ==
[~2019-05-01] VITALS: Ht 152.4 cm; Wt 53.1 kg
[~2019-05-01 19:59] MED LIST changes: +ASPIRIN81 M2 PO
[2019-05-01 20:03] VITALS: BP 159/83
[2019-05-01 21:15] LABS: URINE BILIRUBIN NEGATIVE (Negative); URINE BLOOD 3+ (Negative); URINE CLARITY CLEAR; URINE COLOR YELLOW; URINE GLUCOSE-RANDOM* NEGATIVE (Negative); URINE KETONES NEGATIVE (Negative); URINE LEUKOCYTES-REFLEX NEGATIVE (Negative); URINE NITRITE-REFLEX NEGATIVE (Negative); URINE PROTEIN (DIPSTICK) TRACE (Negative); URINE UROBILINOGEN 0.2 E.U./dl (0.2-1.0)
[2019-05-01 21:25] LABS: BACTERIA-REFLEX 1-9 Few /HPF (None Seen); CASTS None Seen /LPF (None Seen); CRYSTALS None Seen /LPF (None Seen); SQUAMOUS 0-3 Few /LPF (0-3); URINE WBC-REFLEX None Seen /HPF (0-5)
[2019-05-01 21:30] LABS: ABSOLUTE NEUTROPHILS 5.4 thou/uL (1.4-8.2); BASOPHILS 0.8 % (0.0-2.0); EOSINOPHILS 2.2 % (0.0-3.0); HEMATOCRIT 40.2 % (37.0-47.0); HEMOGLOBIN 13.4 gm/dL (12.0-15.0); LYMPHOCYTES 25.2 % (24.0-44.0); MCH 30.7 pg (26.0-34.0); MCHC 33.4 g/dL (28.0-37.0); PLATELET COUNT 258 thou/uL (150-400); POLYS 59.8 % (36.0-66.0); RBC 4.36 mil/uL (4.20-5.00); RDW 14.1 % (10.5-14.5); WBC 9.1 thou/uL (4.0-11.0)
[2019-05-01 21:40] LABS: CALCIUM 8.9 mg/dL (8.5-10.1); POTASSIUM 3.5 mmol/L (3.5-5.1)
[2019-05-01 21:53] LABS: TROPONIN-I 0.74 ng/mL (<0.06)
[2019-05-02] VITALS (175 sets, daily range): BP systolic 97–170; BP diastolic 56–91
[2019-05-02] MEDS ORDERED: NORVASC5 MG PO (01:04)
--- NOTE | 2019-05-02 08:37 | EKG ---
[place] [address] [employer] [place] [place] [address] ELECTROCARDIOGRAM REPORT Name: PATEL COYLE Room #: 250-P ADM IN M.R.#: [id number] Admission: 05/02/19 Attend Phys: Ricardo Herrera MD Discharge: Date of : 31 Report #: [id number] THIS REPORT FOR: //name// [facility] ED Test Date: 2019-05-01 Test Time: 20:08:38 Pat Name: PATEL COYLE Department: Room: 250 Gender: F Magnetic Resonance Imaging Director: PAULINE : 1930 Requested By: Nicolás Rodriguez Order Number: [id number] MD: Vinny Montilla Measurements Intervals [place] Rate: 78 P: HI: QRS: 73 QRSD: 100 T: QT: 392 QTc: 447 Interpretive Statements Atrial fibrillation LVH with secondary repolarization abnormality Poor R wave progression Compared to ECG 02/28/2019 16:11:02 criteria for inferior infarct no longer present Electronically Signed On 05-02-2019 8:36:50 CDT by Vinny Montilla [email or web address] <ELECTRONICALLY SIGNED> By: Vinny Montilla MD, [facility] 05/02/1935 07 07 iVnny Montilla MD, FACC /EPI
--- NOTE | 2019-05-02 14:59 | 2DMMODE ---
[facility] [address] [place] [address] 2 D/M-MODE ECHOCARDIOGRAM Name: COYLEPATEL Room #: 250-P [facility] IN ..#: [id number] Admission: 05/02/19 Attend Phys: Ricardo Herrera, Discharge: Date of : 31 Date of Service: 05/02/19 1459 Report #: [id number] THIS REPORT FOR: //name// APPROVED REPORT Study performed: 05/02/2019 14:17:47 EXAM: Comprehensive 2D, Doppler, and color-flow Echocardiogram Patient Location: ICU Room #: 250 Status: routine BSA: 1.44 HR: 82 bpm BP: 147/78 mmHg Rhythm: Atrial Fibrillation Other Information Study Quality: Good Indications Atrial Fibrillation Dyspnea Hx: CVA, afib, HTN, HLP. 2D Dimensions RVDd: 42.20 mm IVSd: 15.59 (7-11mm) LVOT Diam: 22.54 (18-24mm) LVDd: 38.63 mm PWd: 15.48 (7-11mm) Ascending Ao: 41.58 (22-36mm) LVDs: 30.65 (25-40mm) Aortic Root: 38.99 mm Volumes Left Atrial Volume (Systole) Single Plane 4CH: 62.18 mL Single Plane 2CH: 57.78 mL LA ESV Index: 45.00 mL/m2 Aortic Valve AoV Peak Shine.: 1.23 m/s AO Peak Gr.: 6.07 mmHg LVOT Max P.07 mmHg LVOT Max V: 0.72 m/s STACI Vmax: 2.33 cm2 Mitral Valve MV Decel. Time: 162.40 ms [facility] [address] [place] [address] 2 D/M-MODE ECHOCARDIOGRAM Name: PATEL COYLE Room #: 250-[facility] IN [facility]#: [id number] Admission: 05/02/19 Attend Phys: Ricardo Herrera, Discharge: Date of : 31 Date of Service: 05/02/19 1459 Report #: [id number] MV E Max Shine.: 0.95 m/s Pulmonary Valve PV Peak Shine.: 0.68 m/s PV Peak Gr.: 1.85 mmHg Tricuspid Valve TR Peak Shine.: 2.22 m/s RAP Estimate: 15.00 mmHg TR Peak Gr.: 19.79 mmHg PA Pressure: 35.00 mmHg Left Ventricle The left ventricle is normal size. Moderate to severe concentric left ventricular hypertrophy. Left ventricular systolic function is mildly decreased. LVEF is 45%. This study is not technically sufficient to allow evaluation of the LV diastolic function due to atrial fibrillation. Right Ventricle The right ventricle is normal size. Right ventricle is mildly hypokinetic. Atria Left atrium is moderately dilated. Right atrium is mildly dilated. Aortic Valve Aortic valve is trileaflet; mildly calcified. Trace to mild aortic regurgitation. There is no aortic valvular stenosis. Mitral Valve The mitral valve is normal in structure. Mild to moderate mitral regurgitation. Tricuspid Valve The tricuspid valve is normal in structure. Trace to mild tricuspid regurgitation. Estimated PAP is 35mmHg. Pulmonic Valve The pulmonary valve is normal in structure. Mild pulmonic regurgitation. Great Vessels Aortic root is upper limits of normal at 3.9cm. 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 IVC is dilated and collapses <50% with inspiration. [facility] [address] [place] [address] 2 D/M-MODE ECHOCARDIOGRAM Name: PATEL COYLE Room #: 250-P ADM IN M.R.#: [id number] Admission: 05/02/19 Attend Phys: Ricardo Herrera, Discharge: Date of : 31 Date of Service: 05/02/19 1459 Report #: [id number] Pericardium There is no pericardial effusion. Left and right pleural effusions noted. <Conclusion> The left ventricle is normal size. Moderate to severe concentric left ventricular hypertrophy. LVEF is 45%. The right ventricle is normal size. Right ventricle is mildly hypokinetic. Left atrium is moderately dilated. Right atrium is mildly dilated. Aortic valve is trileaflet; mildly calcified. Trace to mild aortic regurgitation. The mitral valve is normal in structure. Mild to moderate mitral regurgitation. The tricuspid valve is normal in structure. Trace to mild tricuspid regurgitation. Estimated PAP is 35mmHg. The pulmonary valve is normal in structure. Mild pulmonic regurgitation. Aortic root is upper limits of normal at 3.9cm. 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 Left and right pleural effusions noted. <ELECTRONICALLY SIGNED> By: Jimenez Estrella MD 05/02/19 1459 1459 1459 Jimenez Estrella MD /INF
--- NOTE | 2019-05-02 17:29 | NUR ---
Case opened to follow for dc planning. Interface Analyst visited with the pt at bedside.She is being treated for pneumonia. She is a&ox4 and able to answer assessment questions. She reports that she lives at home alone and her son Valentin and dtr Clotilde are very involved with her care. She denies using any dme and reports her kids were trying to take her outpt therapy or rehab. She has lifeline in place and is lonely at times since her spouse one year ago. She was here last fall d/t a CVA and was on 5N for acute rehab prior to going home with hh. She had [facility] in the past and would like to use them again if needed. No family here at present. Will ask for therapy evals and follow for likely hh referral at dc. Her children will need to be involved with the dc planning. She no longer drives and relies on them for appointments and errands. She has a couple of steps into her home then everything is on the main level. Cm role introduced. Will follow.
--- NOTE | 2019-05-02 18:20 | NUR ---
CONTINUED MANAGEMENT FOR PNA. NOTED DYSPNEA ON EXERTION. WEAN O2 TOLERAED. ENCOURAGED COUGHING AND DEEP BREATHING; PRODUCTIVE COUGH. BREATHING TX PRN; ENCOURAGED RT TO FOLLOW NOTED DIMINISHED AIR EXCHANGED. VSS, SEE FLOWSHEET; WITH NOTED ATRIAL FIBRILLATION RATES 80s-nonsustained 130s with activity. LOPRESSOR TO BE GIVEN NEEDED DIRECTED. ENCOURAGED ACTIVITY TOLERATED. TOLERATING FOODS AND FLUIDS. VOIDING WITHOUT DIFFCULTY. FAMILY SUPPORT INTERMITTENTLY THROUGHOUT THE DAY. CONTINUED PROGRESSION TOWARDS CURRENT PLAN OF CARE GOALS. NO ACUTE EVENTS TO REPORT.
[2019-05-03] VITALS (7 sets, daily range): BP systolic 146–167; BP diastolic 61–88
--- NOTE | 2019-05-03 03:58 | NUR ---
PT HAS BEEN RESTLESS TONIGHT. SITTING UP AT SIDE OF BED WITH INTERMITTENT TRYING TO NAP/SLEEP. PT HAS BEEN AFIB MAJORITY OF NIGHT BUT CONVERTED TO SR W/PACs. HAD TO INCREASE PT O2 FROM 2L TO 4L PT IS A MOUTH BREATHER. LINING CASER ORDERED SOME BENADRYL TO HELP PT SLEEP AND THEN WE PLACED BIPAP ON AT 30% FIO2 SATS NOW 97%
[2019-05-03 11:40] LABS: HEMATOCRIT 40.1 % (37.0-47.0); HEMOGLOBIN 13.1 gm/dL (12.0-15.0); MCH 30.5 pg (26.0-34.0); MCHC 32.6 g/dL (28.0-37.0); MCV 93.5 fL (80.0-100.0); RBC 4.28 mil/uL (4.20-5.00); RDW 14.8 % (10.5-14.5); WBC 12.2 thou/uL (4.0-11.0)
[2019-05-03 11:44] LABS: CREATININE 0.9 mg/dL (0.6-1.0); MAGNESIUM 2.1 mg/dL (1.8-2.4); POTASSIUM 3.7 mmol/L (3.5-5.1)
--- NOTE | 2019-05-03 15:10 | NUR ---
ASSUMED CARE OF PT AT 0700 THIS SHIFT. PT HAS BEEN COOPERATIVE, HAS DENIED ANY PAIN THIS SHIFT. PT HAS STATED SHE DOESN'T FEEL WELL, PHYSICIANS ARE AWARE. PT STILL HAS TROUBLE BREATHING, PT IS STILL ON NASAL CANNULA. PT IS CURRENTLY RESTING COMFORTABLY IN ROOM, ASSESSMENTS ARE DOCUMENTED. PT HAS HAD VISITORS THIS SHIFT, EDUCATION WAS PROVIDED. PLAN OF CARE IS TO CONTINUE TO MONITOR PT CLOSELY AT THIS TIME.
[2019-05-04] VITALS (7 sets, daily range): BP systolic 115–149; BP diastolic 53–70
[2019-05-04 05:47] LABS: HEMATOCRIT 39.1 % (37.0-47.0); HEMOGLOBIN 12.8 gm/dL (12.0-15.0); MCH 30.7 pg (26.0-34.0); MCHC 32.9 g/dL (28.0-37.0); MCV 93.5 fL (80.0-100.0); RBC 4.18 mil/uL (4.20-5.00); RDW 14.3 % (10.5-14.5)
[2019-05-04 05:50] LABS: CALCIUM 8.6 mg/dL (8.5-10.1); MAGNESIUM 1.9 mg/dL (1.8-2.4); POTASSIUM 3.6 mmol/L (3.5-5.1)
[2019-05-04 06:00] LABS: TROPONIN-I 0.99 ng/mL (<0.06)
--- NOTE | 2019-05-04 07:00 | NUR ---
PT A&O X4 AND CONFUSED AT TIMES. PT ON 2L O2 AND GETS SOA WITH ACTIVITY. O2 WOULD DESAT INTO THE 80s OVERNIGHT WHEN PT SLEEPING D/T MOUTH BREATHING AND SLEEP APNEA. PT WOULD RECOVER QUICKLY. WILL CONTINUE TO MONITOR.
--- NOTE | 2019-05-04 16:37 | NUR ---
Veterinary Assistant Technician visited with both the pt's son Valentin and dtr Clotilde [phone] regarding her dc plan. They are anticipating dc to home tomorrow. Kids to take shifts staying with her an providing 24hr supervision. If able, she will resume her 3-5x week adult day services at [facility]. They also provide her outpt therapy services onsite. They are not interested in HH or SNF at this time. The pt has weaned off o2 this afternoon and was able to participate with therapy while her dtr was here this morning. Plan discussed with the attending. Family will be here mid day tomorrow to take her home.
--- NOTE | 2019-05-04 17:42 | NUR ---
Assumed care approx. 0700 this AM. Patient titrated off of oxygen today and now on room air. Patient has been standby with activity and anxious to keep moving. Patient unsteady on feet at times, but strength has been improving. Fall precautions in place. Discharge plans made for tomorrow and discussed between nursing staff, patient, family and social work. Progression made toward goals.
[2019-05-05 04:19] VITALS: BP 147/74
--- NOTE | 2019-05-05 04:31 | NUR ---
PT SLEPT INTERMITTENTLY THROUGHOUT THE NIGHT AFTER TAKING SLEEP AID. 2L O2 BY NASAL CANNULA ON PT. DESATS WHILE SLEEPING WITH O2 ON, BUT RECOVERS QUICKLY. HR GOES UP TO 130'S -140'S IN AFIB WITH GETTING UP TO TOILET, ALSO SOA WITH EXERTION. PT HAS BEEN ANXIOUS ABOUT GOING HOME STATING SHE WISHES TO GO HOME IN THE MORNING.
[2019-05-05 06:18] LABS: CALCIUM 8.8 mg/dL (8.5-10.1); HEMATOCRIT 39.9 % (37.0-47.0); HEMOGLOBIN 13.2 gm/dL (12.0-15.0); MAGNESIUM 2.2 mg/dL (1.8-2.4); MCH 30.9 pg (26.0-34.0); MCHC 33.1 g/dL (28.0-37.0); MCV 93.3 fL (80.0-100.0); RBC 4.27 mil/uL (4.20-5.00); RDW 14.6 % (10.5-14.5)
[2019-05-05 08:41] VITALS: BP 152/73
[2019-05-05] MEDS ORDERED: LEVAQUIN 750 M750 MG PO (12:06)
[2019-05-05 12:17] VITALS: BP 115/58
--- NOTE | 2019-05-05 12:33 | NUR ---
PATIENT A&O X 4, PLEASANT AND COOPERATIVE WITH CARES. DENIES PAIN. SOB NOTED WITH MINIMAL MOVEMENT. DESATS SLIGHTLY WHILE SLEEPING ON ROOM AIR TO 87-88% BUT RECOVERS QUICKLY. WALKING OXIMETRY COMPLETED PER ORDERS AND PATIENT STAYED AT 90-92% WALKING 1000 FEET. PATIENT HAS FAMILY AT BEDSIDE. PATIENT TO DISCHARGE HOME TODAY WITH FAMILY, FAMILY PLANS TO STAY WITH PATIENT AND WHILE WORKING PATIENT WILL BE GOING TO AN ADULT DAYCARE. DISCHARGE PAPERWORK COMPLETE, NO FURTHER CONCERNS AT THIS TIME. WILL CONTINUE TO MONITOR AND CARE PER PLAN OF CARE.
[2019-05-05 13:19] VITALS: BP 115/58
== END 2019-05-05 13:19 | disposition home or self-care (01) | DRG 193 ==
LOC: ER 19:59 → ICU 05-02 00:07 → EROBS 05-02 00:07 → ICU 05-02 08:05
PROVIDERS: Emergency Medicine; ADMIT Internal Medicine
PROC: 5A09357 Assistance with Respiratory Ventilation, Less than 24 Consecutive Hours, Continuous Positive Airway Pressure (ICD-10-PCS; principal; 2019-05-03)
DX: J18.9 Pneumonia, unspecified organism (principal); J96.01 Acute respiratory failure with hypoxia; I50.20 Unspecified systolic (congestive) heart failure; J44.0 Chronic obstructive pulmonary disease with (acute) lower respiratory infection; I48.0 Paroxysmal atrial fibrillation; R53.81 Other malaise; N21.0 Calculus in bladder; R31.9 Hematuria, unspecified; R77.8 Other specified abnormalities of plasma proteins; E78.5 Hyperlipidemia, unspecified; E89.0 Postprocedural hypothyroidism; I11.0 Hypertensive heart disease with heart failure; Z60.2 Problems related to living alone; F03.90 Unspecified dementia, unspecified severity, without behavioral disturbance, psychotic disturbance, mood disturbance, and anxiety; M81.0 Age-related osteoporosis without current pathological fracture; Z90.710 Acquired absence of both cervix and uterus; Z90.81 Acquired absence of spleen; Z86.73 Personal history of transient ischemic attack (TIA), and cerebral infarction without residual deficits; Z88.6 Allergy status to analgesic agent; Z88.0 Allergy status to penicillin; Z88.2 Allergy status to sulfonamides; Z79.82 Long term (current) use of aspirin; Z79.899 Other long term (current) drug therapy
CPT/HCPCS: 10203

== ENCOUNTER → 2019-07-23 | Outpatient (CLI) | payer OTHER ==
[~2019-07-23] MED LIST changes: +LEVAQUIN 750 M750 MG PO; +NORVASC5 MG PO
== END ==
LOC: RAD 14:01
DX: M47.898 Other spondylosis, sacral and sacrococcygeal region (principal); M41.87 Other forms of scoliosis, lumbosacral region; M43.17 Spondylolisthesis, lumbosacral region; I70.0 Atherosclerosis of aorta; Z68.1 Body mass index [BMI] 19.9 or less, adult

== ENCOUNTER 2019-09-12 08:17 | Inpatient (IN) | payer OTHER ==
[~2019-09-12] VITALS: Ht 152.4 cm; Wt 48.1 kg
--- NOTE | ~2019-09-12 | HC ---
[facility] [place] [address] CONSULTATION Name: PATEL COYLE Room #: 201-P ADM IN M.R.#: [id number] Admission: 09/12/19 Attend Phys: Cihto Leonardo Discharge: Date of : 31 Report #: [id number] THIS REPORT FOR: //name// CC: Chito Roy CARDIOLOGY CONSULT HISTORY OF PRESENT ILLNESS: The patient is 88-year-old female, well known to us. Has a chronically elevated troponin over the last 24-48 hours, then progressed with shortness of breath with some wheezes and woke up this morning in some distress. Subsequently, called paramedics, has a son, called paramedics. She still lives independently. She is chronically anticoagulated with Eliquis. She has a chronically elevated troponin, usually in the 1.0-1.5 range. She is 2.0 today. The chest x-ray reveals some mild vascular congestion and some patchy basilar atelectasis, possible pneumonitis, right greater than the left ____. She has been compliant with her medications. She has actually done well. She currently sees Dr. Abrahan Roy. She denies chest pain or anginal-type symptoms being a part of this admission history. MEDICATIONS: She is currently on Eliquis 2.5 q. 12 hours, atorvastatin 10, diltiazem 180, multivitamin and Caltrate. PAST MEDICAL HISTORY: Positive for permanent atrial fibrillation, hypertension, hypercholesterolemia, chronically elevated troponin, idiopathic thrombocytopenia, which has been stable, hysterectomy, septoplasty, and splenectomy. SOCIAL HISTORY: Recently . She has 4 children. No current alcohol or tobacco. Never smoked. No alcohol and no drug use. She lives somewhat independently. One cup of coffee a day. FAMILY HISTORY: Both parents had coronary artery disease in their 60s and 70s. REVIEW OF SYSTEMS: Essentially negative except for stated above. Slightly more dependent on her children. LABORATORY WORK: Sodium 136, potassium 3.7, creatinine 1.1, and H and H 15 and 46. PHYSICAL EXAMINATION: VITAL SIGNS: Blood pressure 170/60, pulse 80, irregularly regular. GENERAL: She is alert. She has slight respiratory distress here with some tachypnea. HEENT: EYES: Shows no xanthelasmas. There is arcus senilis. Pharynx is clear. NECK: Shows preserved upstrokes without JVD or bruits. [facility] [address] [place] [address] CONSULTATION Name: PATEL COYLE Room #: 201-P [facility] IN M.R.#: [id number] Admission: 09/12/19 Attend Phys: Chito Leonardo Discharge: Date of : 31 Report #: [id number] LUNGS: Diffuse wheezes throughout. Decreased excursion throughout. CARDIOVASCULAR: Irregularly regular, S1 and S2. ABDOMEN: Soft. No HSM or abdominal bruit. EXTREMITIES: Reveal trace of edema. Distal pulses are diminished, but intact. NEUROLOGIC: Nonfocal. SKIN: Warm and dry without xanthoma or ulcer. MUSCULOSKELETAL: No gross joint deformity. Generalized arthritic changes. ASSESSMENT: 1. Progressive dyspnea, component of [id number]-uj-qlnfuvs diastolic dysfunction. 2. Suspect infectious etiology, bronchitis/pneumonitis. 3. Hypertension. 4. Hypercholesterolemia. 5. History of ITP. RECOMMENDATIONS AND PLAN: We will check BNP. Obtain echo Doppler ____ hospitalist and possible pulmonary for pulmonary issues here. I suspect antibiotics and breathing treatments are indicated. ____ transient period of BiPAP, as she is a CO2 retainer by the blood gas. I do not perceive that this elevated troponin, which she chronically has elevated has significance, but we will certainly look for underlying coronary issues. We will follow with you. Thank you for assisting in the care of this patient. By: [id number] [id number] /nt
[2019-09-12 08:18] VITALS: BP 192/87
[2019-09-12 08:37] LABS: HEMATOCRIT 46.3 % (37.0-47.0); MCH 30.6 pg (26.0-34.0); MCHC 32.4 g/dL (28.0-37.0); MCV 94.6 fL (80.0-100.0); RBC 4.89 mil/uL (4.20-5.00); RDW 14.7 % (10.5-14.5); WBC 12.1 thou/uL (4.0-11.0)
[2019-09-12 08:40] LABS: CALCIUM 9.6 mg/dL (8.5-10.1); CREATININE 1.1 mg/dL (0.6-1.0); POTASSIUM 3.7 mmol/L (3.5-5.1)
[2019-09-12 08:54] LABS: TROPONIN-I 1.9 ng/mL (<0.06)
[2019-09-12 09:16] LABS: BE(vivo) 1.8 mmol/L (-2 to +3); HCO3 29.2 mmol/L (22.0-26.0); PCO2 56.3 mmHg (35.0-45.0); PO2 80.9 mmHg (80.0-100.0); pH 7.332 (7.360-7.450)
[2019-09-12 10:01] LABS: CHOLESTEROL 173 mg/dL (<200); HDL CHOLESTEROL 80 mg/dL (>40); LDL CHOLESTEROL 79 mg/dL (<100); TC:HDL 2.2 Ratio (Not establshd); TRIGLYCERIDE 71 mg/dL (<150); VLDL 14 mg/dL (<40)
[2019-09-12 10:26] LABS: TSH 1.394 uIU/mL (0.358-3.740)
[2019-09-12 11:00] LABS: BE(vivo) 3.7 mmol/L (-2 to +3); HCO3 29.2 mmol/L (22.0-26.0); PCO2 47.4 mmHg (35.0-45.0); PO2 90.6 mmHg (80.0-100.0); pH 7.408 (7.360-7.450); sO2 96.9 % (92.0-98.0)
[2019-09-12 11:18] VITALS: BP 140/63
[2019-09-12 12:53] VITALS: BP 173/74
--- NOTE | 2019-09-12 13:26 | 2DMMODE ---
[facility] [place] [address] 2 D/M-MODE ECHOCARDIOGRAM Name: PATEL COYLE Room #: 201-P ADM IN M.R.#: [id number] Admission: 09/12/19 Attend Phys: Chito Trevizo Discharge: Date of : 32 Report #: [id number] THIS REPORT FOR: //name// APPROVED REPORT Study performed: 09/12/2019 11:11:04 EXAM: Comprehensive 2D, Doppler, and color-flow Echocardiogram Patient Location: ER Status: routine BSA: 1.42 HR: 88 bpm BP: 188/84 mmHg Rhythm: Atrial Fibrillation Other Information Study Quality: Good/patient flat on back on BiPAP Indications Short of breath, leg edema, elevated toponin, CHF. Hx: CM, Afib, CVA, HTN, HLP. 2D Dimensions RVDd: 35.50 mm IVSd: 15.05 (7-11mm) LVOT Diam: 20.66 (18-24mm) LVDd: 39.13 mm PWd: 14.60 (7-11mm) LVDs: 30.36 (25-40mm) Aortic Root: 40.41 mm Volumes Left Atrial Volume (Systole) Single Plane 4CH: 52.39 mL Single Plane 2CH: 56.64 mL LA ESV Index: 41.00 mL/m2 Aortic Valve AoV Peak Shine.: 1.65 m/s AO Peak Gr.: 12.06 mmHg LVOT Max P.71 mmHg LVOT Max V: 0.96 m/s STACI Vmax: 1.95 cm2 Mitral Valve MV Decel. Time: 249.82 ms MV E Max Shine.: 0.98 m/s [facility] [address] [place] [address] 2 D/M-MODE ECHOCARDIOGRAM Name: PATEL COYLE Room #: 201-P ADM IN [facility].#: [id number] Admission: 09/12/19 Attend Phys: Chito Crawford Mar Discharge: Date of : 31 Report #: [id number] Pulmonary Valve PV Peak Shine.: 1.11 m/s PV Peak Gr.: 5.06 mmHg Tricuspid Valve RAP Estimate: 10.00 mmHg Left Ventricle The left ventricle is normal size. Moderate to severe concentric left ventricular hypertrophy. Left ventricular systolic function is normal. LVEF is 50-55%. This study is not technically sufficient to allow evaluation of the LV diastolic function due to atrial fibrillation. Right Ventricle The right ventricle is normal size. The right ventricular systolic function is normal. Atria Left atrium is mildly dilated. Right atrium is mildly dilated. Aortic Valve The aortic valve is normal in structure. Mildly calcified. Trace to mild aortic regurgitation. There is no aortic valvular stenosis. Mitral Valve The mitral valve is normal in structure. Mild mitral regurgitation. Tricuspid Valve The tricuspid valve is normal in structure. There is no tricuspid valve regurgitation noted. Unable to assess PA pressure. Pulmonic Valve The pulmonary valve is normal in structure. Trace pulmonic regurgitation. Great Vessels Aortic root is mildly dilated. Ascending aorta is not well visualized. IVC is normal in size and collapses <50% with inspiration. Pericardium There is no pericardial effusion. [facility] [address] [address] 2 D/M-MODE ECHOCARDIOGRAM Name: PATEL COYLE Room #: 201-P ADM IN M.R.#: [id number] Admission: 09/12/19 Attend Phys: Chito Trevizo Discharge: Date of : 32 Report #: [id number] <Conclusion> The left ventricle is normal size. LVEF is 50-55%. Left atrium is mildly dilated. Right atrium is mildly dilated. The aortic valve is normal in structure. Mildly calcified. Trace to mild aortic regurgitation. The mitral valve is normal in structure. Mild mitral regurgitation. The tricuspid valve is normal in structure. There is no tricuspid valve regurgitation noted. Unable to assess PA pressure. The pulmonary valve is normal in structure. Trace pulmonic regurgitation. Aortic root is mildly dilated. There is no pericardial effusion. <ELECTRONICALLY SIGNED> By: Jimenez Estrella MD 09/12/19 1326 1326 1326 Jimenez Estrella MD /INF
[2019-09-12 13:30] VITALS: BP 147/58
--- NOTE | 2019-09-12 14:47 | NUR ---
TO UNIT FROM Jaimie, REPORT FROM JOHANN GRIFFIN. CHILDREN WITH. ORIENTED TO UNIT, FALL PRECAUTIONS. AFIB PER TELE. WILL CONTINUE TO FOLLOW CLOSELY.
[2019-09-12 16:30] VITALS: BP 154/83
[2019-09-12 18:49] VITALS: BP 157/57
--- NOTE | 2019-09-13 04:23 | NUR ---
ASSESSMENT: PT REMAIN ALERT AND ORIENT TIMES FOUR. UP WITH SBA/WALKER IN CORRIDOR. STEADY GAIT. VSS, AFEBRILE. IRWIN PATENT WITH YELLOW URINE OUTPUT. NO BM THIS SHIFT. LASIX EFFECTIVE. NO COMPLAINTS. SLEPT MOST OF THE NIGHT. AFIB PER MONITOR WITH HR CONTROLLED. SLOW PROGRESS TOWARDS DC GOALS, WILL CONTINUE TO MONITOR,
[2019-09-13 05:48] LABS: ALBUMIN 3.4 g/dL (3.4-5.0); CALCIUM 8.6 mg/dL (8.5-10.1); CREATININE 1.1 mg/dL (0.6-1.0); PHOSPHORUS 3.9 mg/dL (2.5-4.9); POTASSIUM 3.1 mmol/L (3.5-5.1)
[2019-09-13 06:08] LABS: TROPONIN-I 1.63 ng/mL (<0.06)
[2019-09-13 07:10] VITALS: BP 139/72
[2019-09-13 11:30] VITALS: BP 137/70
--- NOTE | 2019-09-13 13:48 | NUR ---
Met with patient and dtr at bedside. Patient resides at home alone. She uses no oxygen or any DME. She ambulates in home, all needs on one level. She microwaves her food. Dtr assists in medication management. patients sister comes to patients home every Tues and spends time. Patient does 3 days a week to [facility] [phone] fax. Discussed Home Health care. Dtr reports if rec HH orders they prefer to cont with [facility] as she is able to interact with friends throughout the day. She is there 3days 7-330. Dtr reports they can do therapy at [facility]. Sp with Jennifer at [facility] who reports if rec HH can fax to them and they have done before patient to have therapy services at [facility]. Therapist familiar with patient. Dtr interested in future planning for her mother. She reports she does not feel she can continue to live alone any more. Resources given to dtr to discuss with family. Casemgt following.
--- NOTE | 2019-09-13 15:25 | NUR ---
PT ALERT AND ORIENTED. VSS. RECEIVED SCHEDULED TYLENOL FOR ATHRITIS. DAUGHTER AT THE BEDSIDE. NO CARDIAC OR RESPIRATORY DISTRESS NOTED. WILL CONTINUE TO MONITOR.
[2019-09-13 15:35] VITALS: BP 120/64
--- NOTE | 2019-09-13 17:18 | EKG ---
[address] [place] [address] ELECTROCARDIOGRAM REPORT Name: PATEL COYLE Room #: 201-P ADM IN M.R.#: [id number] Admission: 09/12/19 Attend Phys: Chito Leonardo Discharge: Date of : 32 Report #: [id number] THIS REPORT FOR: //name// [facility] ED Test Date: 2019-09-12 Test Time: 08:52:15 Pat Name: PATEL COYLE Department: Room: 201 Gender: F Outpatient Physical Therapist: MARISABEL : 1930 Requested By: Corbin Abdullahi Order Number: [id number] MD: Saurabh Ross Measurements Intervals [place] Rate: 74 P: 64 MT: 214 QRS: 41 QRSD: 107 T: 87 QT: 419 QTc: 465 Interpretive Statements Sinus rhythm PVC Borderline prolonged MT interval Left atrial enlargement LVH with secondary repolarization abnormality Electronically Signed On 09-13-2019 17:17:27 ROAD MACHINERY INSPECTOR by Saurabh Ross [email or web address] <ELECTRONICALLY SIGNED> By: Saurabh Ross MD 09/13/19 1717 [id number] [id number] MD KALEN Henning
--- NOTE | 2019-09-13 17:26 | EKG ---
[address] [address] ELECTROCARDIOGRAM REPORT Name: PATEL COYLE Room #: 201-P ADM IN M.R.#: [id number] Admission: 09/12/19 Attend Phys: Chito Leonardo Discharge: Date of : 31 Report #: [id number] THIS REPORT FOR: //name// [facility] Test Date: 2019-09-13 Test Time: 09:47:28 Pat Name: PATEL COYLE Department: Room: 201 P Gender: F Golf Course Designer: LUZ : 1930 Requested By: Izaiah Gonzalez Order Number: [id number] MD: Saurabh Ross Measurements Intervals [place] Rate: 106 P: [place]: QRS: -8 QRSD: 96 T: 146 QT: 381 QTc: 506 Interpretive Statements Atrial fibrillation LVH with secondary repolarization abnormality Compared to ECG 05/01/2019 20:08:38 Poor R-wave progression no longer present Electronically Signed On 09-13-2019 17:26:15 COMMISSION SALES ASSOCIATE by Saurabh Ross [email or web address] <ELECTRONICALLY SIGNED> By: Saurabh Ross MD 09/13/19 1726 09 09 Saurabh Ross MD /GUILLERMINA
[2019-09-13 20:29] VITALS: BP 128/57
--- NOTE | 2019-09-13 23:35 | NUR ---
ASSESSMENT: PT AT APPROXIMATELY 2215 PT'S HR INCREASED TO 144, AFIB RVR PER MONITOR WHICH LASTED < 6 SECONDS. PT IS CURRENTLY IN SR WITH HR 72. PT DID THIS EARLIER AND PER DAY SHIFT, DR'S ARE AWARE, NO ORDERS GIVEN. WILL CONTINUE TO MONITOR,
--- NOTE | 2019-09-14 01:02 | NUR ---
ASSESSMENT: PT REMAIN ALERT AND ORIENT TIMES THREE. UP IN CHAIR TO BED WITH STEADY GAIT. DENIES PAIN, SOB AND N/V. PT DOES C/O HAVING DRY MOUTH/THROAT. PT WAS ON 24-LITERS OF O2 PER NC. ICE CHIPS AND A POPSICKLE HELPED ALOT PER PT. AFIB PER MONITOR. AFEBRILE. IRWIN DC'D. PT IS ANXIOUS ABOUT GOING HOME, CAN'T WAIT TIL SHE DOES. GOOD PROGRESS TOWARDS DC GOALS, WILL CONTINUE TO MONITOR.
[2019-09-14 05:06] VITALS: BP 139/64
[2019-09-14 07:45] VITALS: BP 138/69
[2019-09-14 08:26] LABS: CREATININE 1.2 mg/dL (0.6-1.0)
[2019-09-14 08:30] LABS: CALCIUM 9.3 mg/dL (8.5-10.1)
[2019-09-14] MEDS ORDERED: METOPROLOL SUCC25 M1 PO (09:12)
[2019-09-14] MEDS ORDERED: DILTIAZEM 24HR120 M1 PO (09:13)
[2019-09-14] MEDS ORDERED: DEMADEX20 MG PO (09:13)
[2019-09-14] MEDS ORDERED: K-DUR 20 MEQ T20 MEQ PO (09:14)
[2019-09-14 11:41] VITALS: BP 138/69
[2019-09-14 11:43] VITALS: BP 144/72
[2019-09-14 12:13] VITALS: BP 138/69
--- NOTE | 2019-09-14 12:42 | NUR ---
DISCHARGE TODAY WITH HOME HEALTH AT [facility]. DC LINUX DEVELOPER TO FAX ORDERS AND CALL [place]. PT'S DTR HERE AND AGREEABLE TO DC PLAN.
--- NOTE | 2019-09-14 13:41 | NUR ---
ASSESSMENT CHARTED. PT ALERT AND ORIENTED. VSS. RECEIVED SCHEDULED PAIN MED WITH PARTIAL RELIEF. SEEN BY DR. CARDENAS. ORDERS GIVEN TO DISCHARGE PT TO HOME. DISCHARGE INSTRUCTIONS GIVEN TO PT AND THE DAUGFHTER. THEY BOTH VERBERLISED UNDERSTANDING. PT LEFT THE FACILITY ACCOMPANIED BY THE DAUGHTER.
--- NOTE | 2019-09-14 14:25 | NUR ---
PT RECEIVED HH WITH [facility] FAXED REFERRAL AND DC ORDERS/SUMMARY TO [facility] SPOKE WITH DANIELLE IN INTAKE SHE RECEIVED INFO AND WILL SEE PT AT [facility].
[2019-09-15] MEDS ORDERED: METOPROLOL SUCC25 M1 PO (09:34)
[2019-09-15] MEDS ORDERED: DILTIAZEM 24HR120 M1 PO (09:34)
[2019-09-15] MEDS ORDERED: ELIQUIS2.5 MG PO (09:34)
[2019-09-15] MEDS ORDERED: DEMADEX20 MG PO (09:34)
[2019-09-15] MEDS ORDERED: K-DUR 20 MEQ T20 MEQ PO (09:34)
[2019-09-15] MEDS ORDERED: LIPITOR10 MG PO (09:34)
== END 2019-09-14 13:44 | disposition home health service (06) | DRG 291 ==
LOC: ER 08:17 → 2N 09:37 → EROBS 09:37 → 2N 12:54
PROVIDERS: Emergency Medicine; Nurse Practitioner Adult Health; ADMIT Hospitalist
DX: I11.0 Hypertensive heart disease with heart failure (principal); J96.21 Acute and chronic respiratory failure with hypoxia; I48.21 Permanent atrial fibrillation; I50.33 Acute on chronic diastolic (congestive) heart failure; E78.00 Pure hypercholesterolemia, unspecified; E03.9 Hypothyroidism, unspecified; E78.5 Hyperlipidemia, unspecified; Z60.2 Problems related to living alone; I16.0 Hypertensive urgency; E87.6 Hypokalemia; I08.0 Rheumatic disorders of both mitral and aortic valves; M81.0 Age-related osteoporosis without current pathological fracture; Z79.01 Long term (current) use of anticoagulants; Z79.899 Other long term (current) drug therapy; Z90.710 Acquired absence of both cervix and uterus; Z90.81 Acquired absence of spleen; Z86.73 Personal history of transient ischemic attack (TIA), and cerebral infarction without residual deficits; Z88.6 Allergy status to analgesic agent; Z88.0 Allergy status to penicillin; Z88.2 Allergy status to sulfonamides; Z82.49 Family history of ischemic heart disease and other diseases of the circulatory system; R79.89 Other specified abnormal findings of blood chemistry
CPT/HCPCS: 10081

== ENCOUNTER 2019-09-21 07:50 | Inpatient (IN) | payer OTHER ==
[~2019-09-21] VITALS: Ht 152.4 cm; Wt 46.6 kg
[~2019-09-21 07:50] MED LIST changes: +DEMADEX20 MG PO; +DILTIAZEM 24HR120 M1 PO; +K-DUR 20 MEQ T20 MEQ PO; +METOPROLOL SUCC25 M1 PO
[2019-09-21 07:51] VITALS: BP 180/94
[2019-09-21 08:11] LABS: ABSOLUTE NEUTROPHILS 5.3 thou/uL (1.4-8.2); BASOPHILS 0.7 % (0.0-2.0); EOSINOPHILS 0.1 % (0.0-3.0); HEMATOCRIT 46.2 % (37.0-47.0); HEMOGLOBIN 15.1 gm/dL (12.0-15.0); LYMPHOCYTES 32.6 % (24.0-44.0); MCH 30.8 pg (26.0-34.0); MCHC 32.6 g/dL (28.0-37.0); MCV 94.5 fL (80.0-100.0); MONOCYTES 11.6 % (1.0-8.0); PLATELET COUNT 173 thou/uL (150-400); RBC 4.89 mil/uL (4.20-5.00); RDW 14.3 % (10.5-14.5); WBC 9.6 thou/uL (4.0-11.0)
[2019-09-21 08:17] LABS: BE(vivo) 4.5 mmol/L (-2 to +3); HCO3 30.6 mmol/L (22.0-26.0); PCO2 VENOUS 50.6 mmHg (41.0-51.0); PO2 VENOUS 36.8 mmHg (35.0-45.0)
[2019-09-21 08:19] LABS: CALCIUM 9.2 mg/dL (8.5-10.1); CREATININE 1.1 mg/dL (0.6-1.0); POTASSIUM 3.8 mmol/L (3.5-5.1)
[2019-09-21 08:29] LABS: ALBUMIN 3.6 g/dL (3.4-5.0); TOTAL BILIRUBIN 0.4 mg/dL (<0.1-1.0); TOTAL PROTEIN 7.5 g/dL (6.4-8.2)
[2019-09-21 08:33] LABS: TROPONIN-I 2.17 ng/mL (<0.06)
[2019-09-21 08:59] VITALS: BP 179/79
--- NOTE | 2019-09-21 09:06 | EKG ---
[place] [address] [place] [address] ELECTROCARDIOGRAM REPORT Name: PATEL COYLE Room #: 170-6 ADM IN M.R.#: [id number] Admission: 09/21/19 Attend Phys: Rakesh Kathleen MD Discharge: Date of : 32 Report #: [id number] THIS REPORT FOR: //name// [facility] ED Test Date: 2019-09-21 Test Time: 08:27:48 Pat Name: PATEL COYLE Department: Room: 170 Gender: F Transit Mixer Operator: basilia christopher : 1930 Requested By: Chase Donaldson Order Number: [id number] MD: Vinny Montilla Measurements Intervals [place] Rate: 81 P: 66 NE: 212 QRS: 20 QRSD: 103 T: QT: 414 QTc: 481 Interpretive Statements Sinus rhythm Multiple premature complexes,supraven Borderline prolonged NE interval Left atrial enlargement LVH with secondary repolarization abnormality Compared to ECG 09/13/2019 09:47:28 sinus rhythm has replaced atrial fibrillation Electronically Signed On 09-21-2019 9:05:27 GRATED CHEESE MAKER by Vinny Montilla [email or web address] <ELECTRONICALLY SIGNED> By: Vinny Montilla MD, [facility] 09/21/19904 6 6 Vinny Montilla MD, [facility] /EPI
[2019-09-21 11:38] LABS: URINE BILIRUBIN NEGATIVE (Negative); URINE BLOOD 2+ (Negative); URINE CLARITY CLEAR; URINE COLOR YELLOW; URINE GLUCOSE-RANDOM* NEGATIVE (Negative); URINE KETONES NEGATIVE (Negative); URINE LEUKOCYTES-REFLEX 3+ (Negative); URINE NITRITE-REFLEX POSITIVE (Negative); URINE PROTEIN (DIPSTICK) TRACE (Negative); URINE UROBILINOGEN 0.2 E.U./dl (0.2-1.0)
[2019-09-21 12:29] LABS: CASTS None Seen /LPF (None Seen); SQUAMOUS 0-3 Few /LPF (0-3)
[2019-09-21 12:30] LABS: BACTERIA-REFLEX >30 Many /HPF (None Seen); CRYSTALS None Seen /LPF (None Seen); URINE RBC 0-2 Rare /HPF (0-2); URINE WBC-REFLEX >25 Many /HPF (0-5); WBC CLUMPS Moderate (None Seen)
[2019-09-21 13:50] VITALS: BP 125/63
[2019-09-21 14:00] VITALS: BP 145/80
[2019-09-21 20:26] VITALS: BP 123/59
[2019-09-22 04:16] VITALS: BP 126/72
[2019-09-22 05:20] LABS: CALCIUM 8.9 mg/dL (8.5-10.1); CREATININE 1.3 mg/dL (0.6-1.0); POTASSIUM 3.9 mmol/L (3.5-5.1)
[2019-09-22 05:36] LABS: HEMATOCRIT 47.1 % (37.0-47.0); HEMOGLOBIN 15.5 gm/dL (12.0-15.0); MCH 31.1 pg (26.0-34.0); MCHC 32.9 g/dL (28.0-37.0); MCV 94.5 fL (80.0-100.0); RBC 4.98 mil/uL (4.20-5.00); RDW 14.2 % (10.5-14.5); WBC 5.7 thou/uL (4.0-11.0)
[2019-09-22 07:00] VITALS: BP 128/46
[2019-09-22 11:40] VITALS: BP 120/62
[2019-09-22 17:00] VITALS: BP 102/48
[2019-09-22] MEDS ORDERED: LIPITOR40 MG PO (17:00)
[2019-09-22 20:07] VITALS: BP 136/63
[2019-09-23 05:02] VITALS: BP 120/68
[2019-09-23 05:47] LABS: HEMATOCRIT 44.9 % (37.0-47.0); HEMOGLOBIN 14.7 gm/dL (12.0-15.0); MCH 30.9 pg (26.0-34.0); MCHC 32.7 g/dL (28.0-37.0); MCV 94.4 fL (80.0-100.0); RBC 4.75 mil/uL (4.20-5.00); RDW 14.5 % (10.5-14.5)
[2019-09-23 06:02] LABS: WBC 21.6 thou/uL (4.0-11.0)
[2019-09-23 07:30] VITALS: BP 102/61
[2019-09-23 11:30] VITALS: BP 112/78
[2019-09-23 16:30] VITALS: BP 112/81
[2019-09-23 19:43] VITALS: BP 131/68
[2019-09-24 05:13] VITALS: BP 136/58
[2019-09-24 06:04] LABS: HEMATOCRIT 45.4 % (37.0-47.0); HEMOGLOBIN 14.7 gm/dL (12.0-15.0); MCH 30.5 pg (26.0-34.0); MCHC 32.3 g/dL (28.0-37.0); MCV 94.2 fL (80.0-100.0); RBC 4.82 mil/uL (4.20-5.00); RDW 14.4 % (10.5-14.5); WBC 25.4 thou/uL (4.0-11.0)
[2019-09-24 08:00] VITALS: BP 129/77
[2019-09-24 11:52] VITALS: BP 115/59
[2019-09-24 15:51] VITALS: BP 121/59
[2019-09-24 19:59] VITALS: BP 132/51
[2019-09-25 04:33] VITALS: BP 154/76
[2019-09-25 08:30] VITALS: BP 145/82
[2019-09-25 19:20] VITALS: BP 134/62
[2019-09-26 04:00] VITALS: BP 133/73
[2019-09-26 05:45] LABS: HEMATOCRIT 47.2 % (37.0-47.0); HEMOGLOBIN 15.4 gm/dL (12.0-15.0); MCH 30.7 pg (26.0-34.0); MCHC 32.5 g/dL (28.0-37.0); MCV 94.5 fL (80.0-100.0); PLATELET COUNT 171 thou/uL (150-400); RDW 14.7 % (10.5-14.5); WBC 13.2 thou/uL (4.0-11.0)
[2019-09-26 06:11] LABS: ALBUMIN 3.3 g/dL (3.4-5.0); CALCIUM 8.6 mg/dL (8.5-10.1); CREATININE 1.2 mg/dL (0.6-1.0); MAGNESIUM 2.7 mg/dL (1.8-2.4); POTASSIUM 4.3 mmol/L (3.5-5.1); TOTAL BILIRUBIN 0.7 mg/dL (<0.1-1.0); TOTAL PROTEIN 6.9 g/dL (6.4-8.2)
[2019-09-26 08:22] VITALS: BP 149/79
[2019-09-26 08:45] LABS: ABSOLUTE NEUTROPHILS 8.3 thou/uL (1.4-8.2); PLATELET ESTIMATE NORMAL
[2019-09-26 15:19] VITALS: BP 149/79
[2019-09-26 16:11] VITALS: BP 149/79
[2019-09-26] MEDS ORDERED: ACETAMINOPHEN325 M1 PO (16:37)
[2019-09-26] MEDS ORDERED: CARDIZEM CD 18180 M3 PO (16:37)
[2019-09-26] MEDS ORDERED: BENZONATATE100 MG PO (16:37)
[2019-09-26] MEDS ORDERED: CIPRO500 MG PO (16:37)
[2019-09-26 16:59] VITALS: BP 149/79
[2019-09-26 18:45] VITALS: BP 149/79
== END 2019-09-26 19:30 | disposition home health service (06) | DRG 291 ==
LOC: ER 07:50 → EROBS 09:02 → 2N 13:55 → ENTRNSPT 09-24 14:49 → EDTRNSPTSTS 09-24 14:52 → 4S 09-24 15:08 → CMPTRNSPT 09-25 08:19 → 4S 09-26 19:30
PROVIDERS: Emergency Medicine; Internal Medicine; Nurse Practitioner Acute Care; ADMIT Hospitalist
DX: I13.0 Hypertensive heart and chronic kidney disease with heart failure and stage 1 through stage 4 chronic kidney disease, or unspecified chronic kidney disease (principal); I50.33 Acute on chronic diastolic (congestive) heart failure; N39.0 Urinary tract infection, site not specified; J10.1 Influenza due to other identified influenza virus with other respiratory manifestations; I48.0 Paroxysmal atrial fibrillation; Z60.2 Problems related to living alone; M81.0 Age-related osteoporosis without current pathological fracture; B96.20 Unspecified Escherichia coli [E. coli] as the cause of diseases classified elsewhere; G47.00 Insomnia, unspecified; D72.829 Elevated white blood cell count, unspecified; F20.9 Schizophrenia, unspecified; Z90.710 Acquired absence of both cervix and uterus; Z90.81 Acquired absence of spleen; Z86.73 Personal history of transient ischemic attack (TIA), and cerebral infarction without residual deficits; Z88.6 Allergy status to analgesic agent; Z88.0 Allergy status to penicillin; Z88.2 Allergy status to sulfonamides; Z79.01 Long term (current) use of anticoagulants; Z79.899 Other long term (current) drug therapy
CPT/HCPCS: 10081; 10100; 10195; 10797

== ENCOUNTER → 2020-04-25 | Outpatient (CLI) | payer OTHER ==
[~2020-04-25] MED LIST changes: +ACETAMINOPHEN325 M1 PO; +BENZONATATE100 MG PO; +CARDIZEM CD 18180 M3 PO; +CIPRO500 MG PO; +LIPITOR40 MG PO
== END ==
LOC: SJCVC 13:38
PROVIDERS: ATTEND Internal Medicine Cardiovascular Disease
DX: I48.91 Unspecified atrial fibrillation (principal); R94.31 Abnormal electrocardiogram [ECG] [EKG]; I10 Essential (primary) hypertension; E78.00 Pure hypercholesterolemia, unspecified; I65.23 Occlusion and stenosis of bilateral carotid arteries; D68.59 Other primary thrombophilia; Z79.899 Other long term (current) drug therapy

== ENCOUNTER → 2020-12-01 | Outpatient (CLI) | payer OTHER | LOC: HYPER 13:58 | PROVIDERS: ATTEND Emergency Medicine | DX: I70.238 Atherosclerosis of native arteries of right leg with ulceration of other part of lower leg (principal); L97.812 Non-pressure chronic ulcer of other part of right lower leg with fat layer exposed; I70.248 Atherosclerosis of native arteries of left leg with ulceration of other part of lower leg; L97.822 Non-pressure chronic ulcer of other part of left lower leg with fat layer exposed; R60.0 Localized edema; G89.29 Other chronic pain; D69.6 Thrombocytopenia, unspecified; E78.00 Pure hypercholesterolemia, unspecified; I48.91 Unspecified atrial fibrillation; I13.0 Hypertensive heart and chronic kidney disease with heart failure and stage 1 through stage 4 chronic kidney disease, or unspecified chronic kidney disease; N18.4 Chronic kidney disease, stage 4 (severe); I50.9 Heart failure, unspecified; K21.9 Gastro-esophageal reflux disease without esophagitis; F41.9 Anxiety disorder, unspecified; Z90.710 Acquired absence of both cervix and uterus; Z79.01 Long term (current) use of anticoagulants ==

== ENCOUNTER → 2020-12-01 | Outpatient (CLI) | payer OTHER | LOC: SJCVC 13:41 | PROVIDERS: ATTEND Internal Medicine Cardiovascular Disease | DX: R94.31 Abnormal electrocardiogram [ECG] [EKG] (principal); I45.2 Bifascicular block; I48.91 Unspecified atrial fibrillation; E78.00 Pure hypercholesterolemia, unspecified; R77.8 Other specified abnormalities of plasma proteins; I65.23 Occlusion and stenosis of bilateral carotid arteries; D68.59 Other primary thrombophilia; R60.9 Edema, unspecified; I13.10 Hypertensive heart and chronic kidney disease without heart failure, with stage 1 through stage 4 chronic kidney disease, or unspecified chronic kidney disease; N18.4 Chronic kidney disease, stage 4 (severe); Z79.899 Other long term (current) drug therapy; Z88.5 Allergy status to narcotic agent; Z88.0 Allergy status to penicillin ==